=== PATIENT | male | born 1975 | race Caucasian/White ===

== ENCOUNTER 2020-04-09 20:46 | Inpatient (IN) | payer BC, OTHER ==
--- NOTE | 2020-04-09 21:36 | RAD ---
PORTABLE CHEST: 04/09/20 PROVIDED CLINICAL HISTORY: Irregular heartbeat. FINDINGS: No comparisons. Cardiac and mediastinal silhouette is within normal limits. The lungs appear hyperinflated and hyperl ucent suggesting chronic obstructive disease. No focal consolidation, pleural fluid, or pneumothorax apparent. IMPRESSION: No evidence for an acute cardiopulmonary process. POS: [facility]ON
[2020-04-09 21:37] LABS: ALT (SGPT) 14 U/L (8-55); AST (SGOT) 16 U/L (5-34); Albumin 4.4 g/dL (3.5-5.0); Alkaline Phosphatase 63 U/L (40-110); Anion Gap 15 mmol/L (10-20); BUN (Urea Nitrogen) 7 mg/dL (8.9-20.6); Bilirubin, Total 0.6 mg/dL (0.2-1.2); Calc. Creatinine Clearance 0 mL/min (70-130); Calcium 9.1 mg/dL (7.8-10.44); Carbon Dioxide 24 mmol/L (22-29); Chloride 102 mmol/L (98-107); Estimated GFR-MDRD Greater than 90; Globulin 2.8 g/dL (2.4-3.5); Glucose 140 mg/dL (70-105); Lipase 10 U/L (8-78); Potassium 3.2 mmol/L (3.5-5.1); Protein, Total 7.2 g/dL (6.0-8.3); Sodium 138 mmol/L (136-145)
[2020-04-09 21:50] LABS: #Basophils 0.1 thou/uL (0.0-0.2); #Lymphocytes 1.3 thou/uL (1.20-3.40); #Monocytes 0.6 thou/uL (0.11-0.59); #Neutrophils 6.3 thou/uL (1.40-6.50); %Eosinophils 0.1 % (0.0-10.0); %Lymphocytes 15.9 % (21.0-51.0); %Monocytes 7.5 % (0.0-10.0); %Neutrophils 75.5 % (42.0-75.0); Hemoglobin 8.6 g/dL (14.0-18.0); Hypochromia SLIGHT = 6-15 cells (100X) (0-5/hpf); MDiff Complete? YES; Mean Corpuscular HGB CONC 27.9 g/dL (32.0-36.0); Mean Corpuscular Hemoglobin 19.2 pg (27.0-31.0); Mean Corpuscular Volume 68.9 fL (78.0-98.0); Mean Platelet Volume 10.5 fL (7.4-10.4); Microcytosis SLIGHT = 6-15 cells (100X) (0-5/hpf); Platelet Count 437 thou/uL (130-400); Platelet Morphology Comment Appears Increased; RBC Distribution Width 19.3 % (11.5-14.5); Red Blood Cell (RBC) Count 4.49 mill/uL (4.70-6.10); White Blood Cell (WBC) Count 8.3 thou/uL (4.8-10.8)
[2020-04-09 22:17] LABS: Base Excess-Venous 2.2 mmol/L (-2.0 to 3.0); Bicarbonate (HCO3v) 25.9 mmol/L (22.0-28.0); CO2 Tension (PvCO2) 36.1 mmHg (40.0-50.0); Calcium, Ionized 1.09 mmol/L (See Comments:); Chloride 105 mmol/L (98-107); Hemoglobin - Calc 10.4 g/dL (14.0-18.0); Potassium 3.2 mmol/L (3.5-5.1); Sodium 143 mmol/L (138-145); vO2 Saturation-calc 81.5 % (60.0-85.0)
[2020-04-09 23:21] LABS: Reticulocyte Count 0.8 % (0.5-1.5)
[2020-04-09 23:35] LABS: Hemoglobin 7.7 g/dL (14.0-18.0); Hypochromia SLIGHT = 6-15 cells (100X) (0-5/hpf); Lymphocytes 11 % (21-51); MDiff Complete? YES; Mean Corpuscular Hemoglobin 19.4 pg (27.0-31.0); Mean Corpuscular Volume 69.2 fL (78.0-98.0); Mean Platelet Volume 10.4 fL (7.4-10.4); Monocytes 10 % (0-10); Neutrophil 79 % (42-75); Platelet Count 357 thou/uL (130-400); Platelet Morphology Comment Appears Adequate; Red Blood Cell (RBC) Count 3.96 mill/uL (4.70-6.10)
[2020-04-09 23:41] LABS: Iron 14 ug/dL (65-175); Iron Binding Capacity, Total 413 mcg/dL (261-462)
[2020-04-10] MEDS ORDERED: Cefepime 2 GM VIAL ONE (00:01)
[2020-04-10 00:22] LABS: Lactic Acid 0.9 mmol/L (0.5-2.2)
[2020-04-10 01:17] VITALS: BMI 16.9
[2020-04-10] MEDS ORDERED: Acetaminophen 325 MG TAB PO PRN (01:54)
[2020-04-10] MEDS ORDERED: Ondansetron PF 4 MG/2 ML Vial IVP PRN (01:54)
[2020-04-10] MEDS ORDERED: Guaifenesin DM 100-10/5 ML UDCUP PO PRN (01:54)
[2020-04-10] MEDS ORDERED: Labetalol HCl 100 MG/20 ML VIAL SLOW IVP PRN (01:54)
[2020-04-10] MEDS ORDERED: cloNIDine 0.1 MG TAB PO PRN (01:54)
[2020-04-10] MEDS ORDERED: hydrALAZINE 20 MG/ML VIAL SLOW IVP PRN (01:54)
[2020-04-10] MEDS ORDERED: Electrolyte Replacement Protocol FS SCH (02:00)
--- NOTE | 2020-04-10 02:03 | PDOC.HHP ---
Hospitalist HPI - History of Present Illness Weakness History of Present Illness: Patient is a 44 year old male with on PMH who presents to ED for weakness, chest pain, dyspnea with exertion. He reports one month of worsening exertional chest discomfort and shortness of breath. He has become less able to do things such as lift heavy object at his work ([employer]). He reports nausea and vomiting and some feelings of palpitation (has family history of arrhtyhmia). He has lost 15 lbs recently. Went to urgent care, they recommended go to ED, here hgb 7.7, patient denies history of anemia, denies melena/hematemesis/hematochezia. Denies any significant cough, no hemoptysis, denies lower extremity pain. Denies any recent surgeries. Patient states he has not been seen by physician in about 15 years. He has significant alcohol history of 6+ drinks a day. In ED, hgb 7.7, K 3.2, lactic acid 3.5 -> 0.9. CXR clear. Vitals stable. pateint admitted for observation and care. Hospitalist ROS - Review of Systems Constitutional: reports: weakness, malaise. denies: fever, chills, sweats, other Eyes: denies: pain, vision change, conjunctivae inflammation, eyelid inflammation, redness, other ENT: denies: ear pain, ear discharge, nose pain, nose discharge, nose congestion, mouth pain, mouth swelling, throat pain, throat swelling, other Respiratory: reports: SOB with excertion. denies: cough, dry, shortness of breath, hemoptysis, pleuritic pain, sputum, wheezing, other Cardiovascular: reports: other (chest pain w/ exertion). denies: chest pain, palpitations, orthopnea, paroxysmal noc. dyspnea, edema, light headedness Gastrointestinal: denies: nausea, vomiting, abdominal pain, diarrhea, constipation, melena, hematochezia, other Genitourinary: denies: dysuria, frequency, incontinence, hematuria, retention, other Musculoskeletal: denies: neck pain, shoulder pain, arm pain, back pain, hand pain, leg pain, foot pain, other Skin: denies: rash, lesions, edd, bruising, other Neurological: denies: weakness, numbness, incoordination, change in speech, confusion, seizures, other All other systems reviewed; all pertinent +/- noted in HPI/Subj - Medication Medications: Active Medications Generic Name Dose Route Start Last Admin Trade Name Catalina PRN Reason Stop Dose Admin Pantoprazole Sodium 40 mg 04/09/20 23:04 04/10/20 00:55 Pantoprazole 40 Mg Tab PO 04/10/20 03:00 40 mg NOW JAIME Administration no home meds Hospitalist History - Past Medical History Other Medical History: no significant PMH - Past Surgical History Other Surgical History: childhood lung surgery - Family History Other Family History: arrhythmia - Social History Smoking Status: Current every day smoker Alcohol: reports: Heavy (6+ drinks/day) Drugs: reports: marijuana - Exam General Appearance: NAD, awake alert Eye: PERRL, anicteric sclera ENT: normocephalic atraumatic, no oropharyngeal lesions, moist mucosa Neck: supple, symmetric, no JVD, no thyromegaly, no lymphadenopathy, no carotid bruit Heart: RRR, no murmur, no gallops, no rubs, normal peripheral pulses Respiratory: CTAB, no wheezes, no rales, no ronchi, normal chest expansion, no tachypnea, normal percussion Gastrointestinal: soft, non-tender, non-distended, normal bowel sounds, no palpable masses, no hepatomegaly, no splenomegaly, no bruit Extremities: no cyanosis, no clubbing, no edema Skin: normal turgor, no lesions, no rashes Neurological: cranial nerve grossly intact, normal sensation to touch, no weakness, no focal deficits, no new deficit Musculoskeletal: normal tone, normal strength, no muscle wasting Psychiatric: normal affect, normal behavior, A&O x 3 Hospitalist Results - Labs Result Diagrams: 04/09/20 23:11 04/09/20 21:05 Lab results: WBC 7.0 thou/uL (4.8-10.8) 04/09/20 23:11 Hgb 7.7 g/dL (14.0-18.0) L 04/09/20 23:11 Hct 27.4 % (42.0-52.0) L 04/09/20 23:11 MCV 69.2 fL (78.0-98.0) L 04/09/20 23:11 Plt Count 357 thou/uL (130-400) 04/09/20 23:11 Neutrophils % 75.5 % (42.0-75.0) H 04/09/20 21:05 VBG pCO2 36.1 mmHg (40.0-50.0) L 04/09/20 22:18 VBG pO2 42.8 mmHg (35.0-45.0) 04/09/20 22:18 Sodium 138 mmol/L (136-145) 04/09/20 21:05 Potassium 3.2 mmol/L (3.5-5.1) L 04/09/20 21:05 Chloride 102 mmol/L (98-107) 04/09/20 21:05 Carbon Dioxide 24 mmol/L (22-29) 04/09/20 21:05 BUN 7 mg/dL (8.9-20.6) L 04/09/20 21:05 Creatinine 0.87 mg/dL (0.7-1.3) 04/09/20 21:05 Glucose 140 mg/dL (70-105) H 04/09/20 21:05 Lactic Acid 0.9 mmol/L (0.5-2.2) 04/09/20 23:38 Calcium 9.1 mg/dL (7.8-10.44) 04/09/20 21:05 Total Bilirubin 0.6 mg/dL (0.2-1.2) 04/09/20 21:05 AST 16 U/L (5-34) 04/09/20 21:05 ALT 14 U/L (8-55) 04/09/20 21:05 Alkaline Phosphatase 63 U/L (40-110) 04/09/20 21:05 Troponin I 0.010 ng/mL (< 0.028) 04/10/20 00:51 Serum Total Protein 7.2 g/dL (6.0-8.3) 04/09/20 21:05 Albumin 4.4 g/dL (3.5-5.0) 04/09/20 21:05 Lipase 10 U/L (8-78) 04/09/20 21:05 Additional comment: VITAL SIGNS WedApr 09, 2020 23:14 STEPHANIE Bah, Joana BP: 127/78, Pulse: 75, Resp: 16 (Non-Labored), Temp: 98.9 (Oral), Pain: 0, O2 sat: 100 on (Room Air), Time: 04/09/2020 23:14. labs, ED documents, imaging reports reviewed. - EKG Interpretation EKG: nsr 97 beats per minute no acute ST changes. QTc 424. sinus derek Hospitalist H&P A/P - Plan Plan: Patient is a 44 year old male with on PMH who presents to ED for weakness, chest pain, dyspnea with exertion. # acute symptomatic anemia # chest pain, dyspnea on exertion - suspect secondary to anemia # hypokalemia unclear cause, one month of worsening exertional chest discomfort and shortness of breath, lost 15 lbs recently, palpitation symptoms, here hgb 7.7, patient denies history of anemia, denies melena/hematemesis/hematochezia. He has significant alcohol history of 6+ drinks a day. In ED, hgb 7.7, K 3.2, lactic acid 3.5 -> 0.9. CXR clear. Vitals stable. pateint admitted for workup and care. - admit to telemetry - transfuse one unit - occult blood test, check iron panel/peripheral smear/reticulocyte count - electrolyte parameters - notable alcohol history, monitor for withdrawal, start folate/thiamine supplement DVT ppx - SCD GI ppx - ppi full code
[2020-04-10 03:13] LABS: PTT 27.4 sec (22.9-36.1); Prothrombin Time 13.5 sec (12.0-14.7)
[2020-04-10 03:27] LABS: Troponin I 0.013 ng/mL (< 0.028)
[2020-04-10] MEDS ORDERED: Potassium Chloride 20 MEQ TAB PO SCH (04:30)
[2020-04-10] MEDS: Thiamine 100 MG TAB PO SCH (09:46)
[2020-04-10] MEDS: Folic Acid 1 MG TAB PO SCH (09:46)
[2020-04-10 10:59] LABS: Anion Gap 13 mmol/L (10-20); BUN (Urea Nitrogen) 5 mg/dL (8.9-20.6); Calc. Creatinine Clearance 85 mL/min (70-130); Calcium 8.5 mg/dL (7.8-10.44); Carbon Dioxide 24 mmol/L (22-29); Chloride 105 mmol/L (98-107); Estimated GFR-MDRD Greater than 90; Glucose 91 mg/dL (70-105); Potassium 3.9 mmol/L (3.5-5.1); Sodium 138 mmol/L (136-145)
[2020-04-10] MEDS ORDERED: Bisacodyl 5 MG TAB PO SCH (11:00)
[2020-04-10 11:14] LABS: #Basophils 0.1 thou/uL (0.0-0.2); #Lymphocytes 1.1 thou/uL (1.20-3.40); #Monocytes 0.5 thou/uL (0.11-0.59); #Neutrophils 3.4 thou/uL (1.40-6.50); %Basophils 1.3 % (0.0-1.0); %Eosinophils 0.7 % (0.0-10.0); %Monocytes 9.8 % (0.0-10.0); %Neutrophils 66.2 % (42.0-75.0); Hemoglobin 9.7 g/dL (14.0-18.0); Mean Corpuscular HGB CONC 29.1 g/dL (32.0-36.0); Mean Corpuscular Volume 72.1 fL (78.0-98.0); Mean Platelet Volume 9.7 fL (7.4-10.4); Platelet Count 341 thou/uL (130-400); RBC Distribution Width 19.4 % (11.5-14.5); White Blood Cell (WBC) Count 5.1 thou/uL (4.8-10.8)
[2020-04-10 11:22] LABS: Hypochromia MARKED = >30 cells (100X) (0-5/hpf); MDiff Complete? YES; Microcytosis MODERATE=15-30 cells (100X) (0-5/hpf); Ovalocytes SLIGHT = 2-5 cells (100X) (0-1/hpf); Platelet Morphology Comment Appears Adequate; Polychromasia MODERATE = 3-4 cells (100X) (0-2/hpf); Target Cells SLIGHT = 2-5 cells (100X) (0-1/hpf)
[2020-04-10 12:02] LABS: SARS-CoV-2 MS2 Positive; SARS-CoV-2 N Gene Negative; SARS-CoV-2 S Gene Negative; SARS-CoV-2 by NAA Not Detected (NotDetected); SARS-CoV-2 orf1ab Negative
[2020-04-11 04:33] LABS: #Basophils 0.1 thou/uL (0.0-0.2); #Eosinphils 0.1 thou/uL (0.0-0.7); #Lymphocytes 1.5 thou/uL (1.20-3.40); #Monocytes 0.5 thou/uL (0.11-0.59); #Neutrophils 4.1 thou/uL (1.40-6.50); %Basophils 1.5 % (0.0-1.0); %Eosinophils 1.2 % (0.0-10.0); %Lymphocytes 23.8 % (21.0-51.0); %Monocytes 7.6 % (0.0-10.0); Hemoglobin 10.4 g/dL (14.0-18.0); Mean Corpuscular HGB CONC 28.5 g/dL (32.0-36.0); Mean Corpuscular Hemoglobin 20.3 pg (27.0-31.0); Mean Corpuscular Volume 71.3 fL (78.0-98.0); Mean Platelet Volume 10.3 fL (7.4-10.4); Platelet Count 396 thou/uL (130-400); RBC Distribution Width 19.4 % (11.5-14.5); Red Blood Cell (RBC) Count 5.13 mill/uL (4.70-6.10); White Blood Cell (WBC) Count 6.3 thou/uL (4.8-10.8)
[2020-04-11 04:48] LABS: Anion Gap 14 mmol/L (10-20); BUN (Urea Nitrogen) 6 mg/dL (8.9-20.6); Calc. Creatinine Clearance 87 mL/min (70-130); Calcium 8.9 mg/dL (7.8-10.44); Carbon Dioxide 24 mmol/L (22-29); Chloride 103 mmol/L (98-107); Estimated GFR-MDRD Greater than 90; Glucose 96 mg/dL (70-105); Potassium 3.5 mmol/L (3.5-5.1); Sodium 137 mmol/L (136-145)
[2020-04-11] MEDS ORDERED: Potassium Chloride 20 MEQ TAB PO SCH (05:00)
[2020-04-11] MEDS: Folic Acid 1 MG TAB PO SCH (08:07)
[2020-04-11] MEDS: Thiamine 100 MG TAB PO SCH (08:08)
[2020-04-11] MEDS ORDERED: Polyethylene Glycol 3350 17 GM Packet PO SCH (09:00)
[2020-04-11 11:38] VITALS: BP 123/68; TEMP 98.9
--- NOTE | 2020-04-12 07:06 | DIS ---
DATE OF ADMISSION: 04/09/2020 DATE OF DISCHARGE: 04/11/2020 DISCHARGE DIAGNOSIS: 1. Severe anemia due to iron deficiency. 2. Chest pain. 3. Dyspnea on exertion. 4. Hypokalemia. DISCHARGE MEDICATIONS: Ferrous sulfate 325 mg orally twice daily. HISTORY OF PRESENT ILLNESS AND HOSPITAL COURSE: The patient is a 44-year-old male with no significant past medical history, who presented to the hospital with complaints of generalized weakness, palpitations, shortness of breath with exertion. He was found to be anemic with hemoglobin level 7.7. His anemia was microcytic hypochromic due to iron deficiency. The patient received blood transfusion, which led to improvement in his anemia and resolution of his symptoms. The patient denied any GI bleeding. Iron was prescribed for the patient for discharge. Of note, his fecal occult blood test was also negative. Job ID: [id number] MTDD
== END 2020-04-11 14:55 | disposition home or self-care (01) | DRG 812 ==
LOC: ERS 20:46 → 2NO 23:10
PROVIDERS: ADMIT Internal Medicine; ATTEND Internal Medicine
PROC: 30233N1 Transfusion of Nonautologous Red Blood Cells into Peripheral Vein, Percutaneous Approach (ICD-10-PCS; principal; 2020-04-10)
DX: D50.9 Iron deficiency anemia, unspecified (principal); F17.200 Nicotine dependence, unspecified, uncomplicated; E87.6 Hypokalemia; R07.9 Chest pain, unspecified; Z20.828 Contact with and (suspected) exposure to other viral communicable diseases
CPT/HCPCS: 36415; 36430; 71045; 80048; 80053; 82274; 82330; 82728; 82803; 83540; 83550; 83605; 83690; 84484; 85025; 85046; 85060; 85379; 85610; 85730; 86850; 86900; 86901; 87040; 87635; 93005; 94760; J0692; P9016; U0003